=== PATIENT | male | born 1975 ===

== ENCOUNTER 2018-10-22 07:24 | Day surgery (SDC) | payer OTHER ==
[2018-10-22] MEDS ORDERED: ceFAZolin 2 GM/50 ML 2 GM/50 ML BAG IV ONE (07:37)
[2018-10-22] MEDS ORDERED: LACTATED RINGERS 1,000 ML IV ONE ×2 (07:55→11:00)
--- NOTE | 2018-10-22 08:49 | ANESTHESIA ---
Pre-Anesthesia VS, & Labs - Diagnosis left triceps tear - Procedure left triceps repair Vital Signs: Temp Pulse Resp BP Pulse Ox 36.5 C 57 L 18 144/88 H 98 10/22/18 07:42 10/22/18 07:42 10/22/18 07:42 10/22/18 07:42 10/22/18 07:42 Height 5 ft 8 in Weight (kg) 101.5 kg - NPO >8 hours Home Medications and Allergies Home Medications: Ambulatory Orders Telmisartan [Micardis] 40 mg PO 10/21/18 hydroCHLOROthiazide [Hydrochlorothiazide] 25 mg PO 10/21/18 Telmisartan [Micardis] 40 mg PO 10/21/18 hydroCHLOROthiazide [Hydrochlorothiazide] 25 mg PO 10/21/18 Allergies/Adverse Reactions: Allergies Allergy/AdvReac Type Severity Reaction Status Date / Time No Known Drug Allergies Allergy Verified 10/21/18 09:29 Anes History & Medical History - Anesthetic History Anesthesia Complications: reports: No previous complications - Medical History Cardiovascular: reports: None Pulmonary: reports: None Gastrointestinal: reports: None Urinary: reports: None Musculoskeletal: reports: Other Endocrine/Autoimmune: reports: None Skin: reports: None Exam General: Alert Dental: WNL Mouth Opening: Greater than 4 Fingerbreadths Mallampati classification: II Respiratory: Lungs clear Cardiovascular: Regular rate Plan Anesthesia Type: General Consent for Procedure(s) Verified and Reviewed: Yes Code Status: Attempt Resuscitation ASA classification: 1-Healthy patient Is this case an emergency?: No
[2018-10-22] MEDS ORDERED: BUPIVACAINE 0.25% PF 10 ML VIAL ONE (08:51)
[2018-10-22] MEDS ORDERED: BUPIVACAINE 0.25% PF 30 ML VIAL SUBQ ONE ×2 (09:49)
[2018-10-22] MEDS ORDERED: ACETAMINOPHEN 1,000 MG/100 ML 100 ML IV ONE (09:50)
[2018-10-22] MEDS ORDERED: ROCURONIUM 50 MG/5 ML VIAL IVP ONE (09:50)
[2018-10-22] MEDS ORDERED: LIDOCAINE-MPF 2% 5 ML VIAL IM ONE (09:50)
[2018-10-22] MEDS ORDERED: DEXAMETHASONE 4 MG/ML VIAL IVP ONE (09:50)
[2018-10-22] MEDS ORDERED: MIDAZOLAM 2 MG/2 ML VIAL IVP ONE (09:50)
[2018-10-22] MEDS ORDERED: KETOROLAC 30 MG/ML VIAL IVP ONE (09:50)
[2018-10-22] MEDS ORDERED: PROPOFOL 1000 MG/100 ML IV ONE (09:50)
[2018-10-22] MEDS ORDERED: fentaNYL 100 MCG/2 ML VIAL IVP ONE (09:50)
[2018-10-22] MEDS: fentaNYL 100 MCG/2 ML VIAL ONE ×2 (12:40→12:45)
[2018-10-22] MEDS ORDERED: oxyCODONE 5 MG TABLET PO PRN (12:52)
[2018-10-22] MEDS ORDERED: ONDANSETRON 4 MG/2 ML VIAL IVP PRN (12:52)
[2018-10-22] MEDS ORDERED: HYDROmorphone 0.5 MG/0.5 ML SYRINGE ONE (12:53)
[2018-10-22] MEDS: HYDROmorphone 1 MG/ML CARPUJECT ONE ×2 (13:05→13:10)
[2018-10-22] MEDS ORDERED: fentaNYL 100 MCG/2 ML VIAL ONE (13:28)
[2018-10-22] MEDS ORDERED: HYDROmorphone 1 MG/ML CARPUJECT ONE (13:28)
--- NOTE | 2018-10-22 13:56 | OPERATIVE REPORT ---
Operative Report - General Procedure Date: 10/22/18 Planned Procedure: Left Distal Triceps Tendon Repair Pre-Op Diagnosis: Left Distal Triceps Tendon Tear Procedure Performed: Left Distal Triceps Tendon Repair Post Op Diagnosis: Same - Procedure Note Primary Surgeon: Lanre Shah Secondary Surgeon: Raheem Pete Estimated Blood Loss (mL): 50 Findings: Subacute Tear of the large central portion of the tendon. It was mobilized and a direct repair was performed. Complications: None - Other Other Information/Narrative: Implants: Suture tape x3, FiberWire x2, swivel lock x4 Postoperative Protocol: 0-2 weekssplint in 30 degrees of flexion on at all times. 2-4 weeksrange of motion brace with flexion limited to 60 degrees 4-6 weeksrange of motion brace with flexion limited to 90 degrees 6-12 weeksfull active range of motion permitted 3 to 6 monthsgentle gradual resisted exercises 6 monthsweight training can begin Indication For Surgery: He sustained a left triceps tendon tear on August 28 when he fell on an outstretched hand. Prior to the tear he had tendinitis at that location. He was seen in the urgent care in [place] and then came to [facility]. He received an ultrasound and then an MRI and was seen in my clinic 3 days ago. He was found to have a sub-total triceps tendon tear with 3 cm of retraction. Operative management is indicated to restore his strength. The risks, benefits, and alternatives were discussed. Risks include pain, bleeding, infection, damage to nearby structures, numbness, lack of symptom relief, implant complications, nonunion, need for further surgery, DVT, PE, stroke, and . Written consent was obtained. We discussed the potential need for allograft and the risks associated with that. Procedure in Detail: The patient was met in the pre-operative hold area on the day of the procedure. The operative extremity was signed and questions were answered. The patient was brought to the operating room and a general anesthetic was administered. Supine position was used and bony prominences were padded. Standard prepping and draping was performed. A time out confirmed patient identification, laterality, procedure, allergies, antibiotics, and images. A tourniquet was not used for this case. A 10 cm curvilinear incision overlying the triceps tendon. I curved laterally over the tip of the olecranon. Hemostasis was obtained with electrocautery. Full-thickness skin flaps were created. I carefully dissected with scissors medially and identified the ulnar nerve in the cubital tunnel. This was released but then left in place. I remained acutely aware of the position of the ulnar nerve throughout the procedure ensuring not to entrap it. I then identified the tear which is more centrally and retracted. I shelled out the fractured osteophyte. I then placed 2-0 suture tape in a Krakw fashion with 5 stitches up across and 5 down. The central thick tendinous portion was then pulled on using the sutures and I was able to dissect it from where it had scarred in. The most medial and lateral portion of the triceps tendon attached. I did release the small portion of the medial tendon that was intact for visualization purposes and to ensure safe work around the ulnar nerve. I left the lateral portion still attached. I fully mobilized the central tendon ensuring that differential mobility and traction was obtained. The deep portion of the triceps tendon was still intact. I additionally left the capsule attached to the olecranon tip. I used a rondure and a rasp to remove all fibrous tissue from the olecranon and bring it down to a bed of bleeding bone. I also rasped off all of the osteophytes that were at that location. I then measured 12 mm from the olecranon tip and placed to swivel locks with a preloaded an additional suture tape. I then pulled traction on the central tendon and placed for mattress sutures in the appropriate positions on the tendon tear. I incorporated all layers and separate passes. I then pulled traction on the Krackow sutures and tied the 4 horizontal mattresses reducing it nicely to the proximal footprint. I then took 1 suture from each knot brought them out to the lateral row site drilled tapped in place swivel locks with appropriate tension on each limb. I also incorporated 1 of the Krackow sutures into each distal row anchor. After drilling and prior to placing the anchor I used mini C arm to ensure that the trajectory of the implants did not send them into the joint. I then took his elbow through a range of motion and found repaired and there was no motion between the olecranon and the tendon. The wound was irrigated copiously. I used 0 Vicryl to reapproximate side to side the superficial layers of the tendon. I then closed in layered fashion with 0 Vicryl in the deep layers 2-0 Vicryl in the dermis and a running Monocryl in the skin. 20 cc of quarter percent Marcaine plain were placed about the incision. A sterile dressing and a splint was applied with the elbow bent to 20 degrees. He was awakened and transferred to the recovery room.
[2018-10-22] MEDS ORDERED: oxyCODONE 5 MG TABLET ONE (14:20)
[2018-10-22 14:39] VITALS: BP 148/93
== END 2018-10-22 07:25 | disposition home or self-care (01) ==
LOC: SDS 07:24
PROVIDERS: ATTEND Orthopaedic Surgery
PROC: 0LM40ZZ Reattachment of Left Upper Arm Tendon, Open Approach (ICD-10-PCS; principal; 2018-10-22 08:45)
DX: S46.312A Strain of muscle, fascia and tendon of triceps, left arm, initial encounter (principal); I10 Essential (primary) hypertension
CPT/HCPCS: 24342; A9270; C1713; J0690; J1170; J7120